=== PATIENT | female | born 1995 | race Caucasian/White ===

== ENCOUNTER 2018-06-26 16:05 | Emergency (ER) | payer MEDICAID ==
[2018-06-26 16:08] VITALS: BMI 23.8
[2018-06-26 16:53] VITALS: TEMP 98.3; O2SAT 100
[2018-06-26 18:10] LABS: BARBITURATES, UR NEGATIVE (NEGATIVE); BENZODIAZEPINES, UR NEGATIVE (NEGATIVE); OPIATES, UR NEGATIVE (NEGATIVE); PHENCYCLIDINE, UR NEGATIVE (NEGATIVE)
[2018-06-26 18:27] LABS: BASO # 0.01 K/mm3 (0.0-2.0); BASO % 0.2 % (0.0-3.0); EOS % 0.2 % (1.5-5.0); HEMOGLOBIN 12.1 g/dL (12.0-16.0); LYMPH # 1.3 (1.2-3.4); LYMPH % 22.5 % (22.0-35.0); MEAN CELL VOLUME 84.7 fl (80.0-105.0); MEAN CORPUSCULAR HGB CONC 33.1 g/dl (31.0-37.0); MEAN PLATELET VOLUME 9.4 fl (7.0-11.0); MONO # 0.4 (0.1-0.6); MONO % 6.9 % (1.0-6.0); RBC 4.32 10^6/uL (3.5-6.1); RED CELL DISTRIBUTION WIDTH 12.6 % (11.5-14.5); WHITE BLOOD COUNT 5.9 10^3/uL (4.5-11.0)
[2018-06-26 18:34] LABS: ALB/GLOB RATIO 1.5 (1.1-1.8); ALBUMIN 4.8 g/dL (3.0-4.8); ALT/SGPT 15 U/L (7-56); AST/SGOT 25 U/L (14-36); BLOOD UREA NITROGEN 11 mg/dL (7-21); CALCIUM 10.1 mg/dL (8.4-10.5); GFR NON-AFRICAN AMERICAN > 60; TROPONIN I < 0.01 ng/mL
[2018-06-26] MEDS ORDERED: Potassium Chloride 40 mEq/30 ml LIQ UD PO STA (18:59)
[2018-06-26] MEDS ORDERED: Potassium Chloride 20 mEq/15 ml LIQ UD PO STA (18:59)
--- NOTE | 2018-06-26 19:06 | ED PDOC ---
Arrival/HPI - General Historian: Patient - Critical Care Critical Care Minutes: 45 minutes - History of Present Illness Narrative History of Present Illness (Text): 06/26/18 19:03 23 year old female with a past medical history of anxiety presents to the hospital reporting an anxiety attack while on the bus today. Patient states she was leaving work from [employer] when she began to feel her heart race and felt like she was going to pass out. Patient denies chest pain, shortness of breath, fevers, chills, nausea, vomiting, headaches, dizziness, or any other complaints. PMD: anxiety Medications: Denies Allergies: Denies Surgical history: Denies Time/Duration: Prior to Arrival Symptom Onset: Sudden Symptom Course: Improving Quality: Other Severity Level: 2 Activities at Onset: Rest Context: Sitting <Kenny Alexandra - Last Filed: 06/26/18 19:24> <Kenny Desai - Last Filed: 06/26/18 19:53> - General Chief Complaint: Dizziness/Lightheaded Past Medical History - Provider Review Nursing Documentation Reviewed: Yes - Infectious Disease Hx of Infectious Diseases: None - Cardiac Hx Cardiac Disorders: No - Pulmonary Hx Respiratory Disorders: No - Neurological Hx Neurological Disorder: No - HEENT Hx HEENT Disorder: No - Renal Hx Renal Disorder: No - Endocrine/Metabolic Hx Endocrine Disorders: No - Hematological/Oncological Hx Blood Disorders: No - Integumentary Hx Dermatological Disorder: No - Musculoskeletal/Rheumatological Hx Musculoskeletal Disorders: Yes (MUSCLE DEFORMITY LEFT CALF) - Gastrointestinal Hx Gastrointestinal Disorders: No - Genitourinary/Gynecological Hx Genitourinary Disorders: No - Psychiatric Hx Psychophysiologic Disorder: No Hx Substance Use: No - Anesthesia Hx Anesthesia: No <Kenny Alexandra - Last Filed: 06/26/18 19:24> Family/Social History - Physician Review Nursing Documentation Reviewed: Yes Family/Social History: No Known Family HX Smoking Status: Never Smoked Hx Alcohol Use: No Hx Substance Use: No <Kenny Alexandra - Last Filed: 06/26/18 19:24> Allergies/Home Meds <Kenny Alexandra - Last Filed: 06/26/18 19:24> <Kenny Desai - Last Filed: 06/26/18 19:53> Allergies/Adverse Reactions: Allergies No Known Allergies Allergy (Verified 01/29/14 13:11) Home Medications: Home Meds Medication Instructions Recorded Confirmed No Known Home Med 01/29/14 01/30/14 Review of Systems - Physician Review All systems were reviewed & negative as marked: Yes - Review of Systems Constitutional: Normal. absent: Fatigue, Weight Change Eyes: Normal. absent: Vision Changes, Photophobia ENT: Normal. absent: Hearing Changes, Tinnitus Respiratory: Normal. absent: SOB, Sputum Cardiovascular: Normal, Other (Lightheaded). absent: Chest Pain Gastrointestinal: Normal. absent: Abdominal Pain, Vomiting, Food Intolerance Musculoskeletal: Normal. absent: Arthralgias Skin: Normal. absent: Rash, Pruritis Neurological: absent: Headache, Dizziness, Focal Weakness, Disequilibrium, Seizure Endocrine: Normal. absent: Diaphoresis, Polyuria, Polydipsia Psychiatric: Anxiety <Kenny Alexandra - Last Filed: 06/26/18 19:24> Physical Exam Vital Signs Reviewed: Yes Vital Signs Temp Pulse BP Pulse Ox 06/26/18 16:46 98.3 F 104 H 116/77 100 Temperature: Afebrile Blood Pressure: Normal Pulse: Tachycardic Respiratory Rate: Normal Appearance: Positive for: Well-Appearing, Non-Toxic, Comfortable Pain Distress: None Mental Status: Positive for: Alert and Oriented X 3. No: Confused, Agitated - Systems Exam Head: Present: Atraumatic, Normocephalic. No: Abrasion Pupils: Present: PERRL. No: Sluggish Extroacular Muscles: Present: EOMI. No: Gaze Palsy Conjunctiva: Present: Normal. No: Injected Mouth: Present: Moist Mucous Membranes. No: Normal Teeth Neck: Present: Normal Range of Motion. No: Meningeal Signs, JVD Respiratory/Chest: Present: Clear to Auscultation, Good Air Exchange. No: Wheezes Cardiovascular: Present: Regular Rate and Rhythm, Normal S1, S2. No: Murmurs, Tachycardic Abdomen: Present: Normal Bowel Sounds. No: Tenderness, Distention Upper Extremity: Present: Normal Inspection. No: Edema, Erythema Lower Extremity: Present: Normal Inspection. No: Edema, Fernie's Sign Neurological: Present: CN II-XII Intact, Speech Normal Skin: Present: Dry, Normal Color Psychiatric: Present: Oriented x 3, Normal Insight <Kenny Alexandra - Last Filed: 06/26/18 19:24> Vital Signs Temp Pulse BP Pulse Ox 06/26/18 16:46 98.3 F 104 H 116/77 100 <Kenny Desai - Last Filed: 06/26/18 19:53> Medical Decision Making ED Course and Treatment: 06/26/18 16:50 23 year old female presents to the hospital for numbness tingling and racing hearbeat. -EKG -CBC/CMP -POC -Troponin -Xanax 06/26/18 16:55 EKG: Sinus tachycardia. No acute ST-T changes appreciated Likely Panic attack. Patient stable for discharge. 06/26/18 17:30 - Lab Interpretations Lab Results: Troponin I < 0.01 ng/mL 06/26/18 17:50 Total Bilirubin 0.8 mg/dL (0.2-1.3) 06/26/18 17:50 AST 25 U/L (14-36) 06/26/18 17:50 ALT 15 U/L (7-56) 06/26/18 17:50 Alkaline Phosphatase 68 U/L (38-126) 06/26/18 17:50 Total Protein 8.1 g/dL (5.8-8.3) 06/26/18 17:50 Albumin 4.8 g/dL (3.0-4.8) 06/26/18 17:50 Globulin 3.2 gm/dL 06/26/18 17:50 Albumin/Globulin Ratio 1.5 (1.1-1.8) 06/26/18 17:50 - Medication Orders Current Medication Orders: Potassium Chloride (Potassium Chloride Oral Soln) 20 meq PO STAT STA Stop: 06/26/18 19:00 Discontinued Medications Alprazolam (Xanax) 0.25 mg PO STAT STA; Protocol Stop: 06/26/18 17:19 Last Admin: 06/26/18 17:43 Dose: 0.25 mg Potassium Chloride (Potassium Chloride Oral Soln) 40 meq PO STAT STA Stop: 06/26/18 19:00 <Kenny Alexandra - Last Filed: 06/26/18 19:24> ED Course and Treatment: 06/26/18 19:17 Patient Seen with Resident: In agreement with resident note which contains more details about the patient. Patient seen and evaluated with resident. Came up with plan and treatment together. Impression: 23 year old female who presents to the emergency department complaining of anxiety. Examination nonfocal. EKG sinus. Hb normal. Blood pressure normal. No dyspnea. No history of CHF. - Lab Interpretations Lab Results: Troponin I < 0.01 ng/mL 06/26/18 17:50 Total Bilirubin 0.8 mg/dL (0.2-1.3) 06/26/18 17:50 AST 25 U/L (14-36) 06/26/18 17:50 ALT 15 U/L (7-56) 06/26/18 17:50 Alkaline Phosphatase 68 U/L (38-126) 06/26/18 17:50 Total Protein 8.1 g/dL (5.8-8.3) 06/26/18 17:50 Albumin 4.8 g/dL (3.0-4.8) 06/26/18 17:50 Globulin 3.2 gm/dL 06/26/18 17:50 Albumin/Globulin Ratio 1.5 (1.1-1.8) 06/26/18 17:50 - Medication Orders Current Medication Orders: Discontinued Medications Alprazolam (Xanax) 0.25 mg PO STAT STA; Protocol Stop: 06/26/18 17:19 Last Admin: 06/26/18 17:43 Dose: 0.25 mg Potassium Chloride (Potassium Chloride Oral Soln) 40 meq PO STAT STA Stop: 06/26/18 19:00 Last Admin: 06/26/18 19:10 Dose: 40 meq Potassium Chloride (Potassium Chloride Oral Soln) 20 meq PO STAT STA Stop: 06/26/18 19:00 Last Admin: 06/26/18 19:10 Dose: 20 meq <Kenny Desai - Last Filed: 06/26/18 19:53> - Scribe Statement The provider has reviewed the documentation as recorded by the Nay Pruitt Provider Scribe Attestation: All medical record entries made by the Scribe were at my direction and personally dictated by me. I have reviewed the chart and agree that the record accurately reflects my personal performance of the history, physical exam, medical decision making, and the department course for this patient. I have also personally directed, reviewed, and agree with the discharge instructions and disposition. <Kenny Desai - Last Filed: 06/26/18 19:53> Disposition/Present on Arrival - Present on Arrival Any Indicators Present on Arrival: No History of DVT/PE: No History of Uncontrolled Diabetes: No Urinary Catheter: No History of Decub. Ulcer: No History Surgical Site Infection Following: None - Disposition Have Diagnosis and Disposition been Completed?: Yes Disposition Time: 17:55 Patient Plan: Discharge <Kenny Alexandra - Last Filed: 06/26/18 19:24> <Kenny Desai - Last Filed: 06/26/18 19:53> - Disposition Diagnosis: Panic attack Disposition: HOME/ ROUTINE Condition: GOOD Additional Instructions: 1.F/u with PMD within 5 days of discharge. 2.F/u with Psychiatry within 5 days of discharge. 3.Return to hospital for any new or worsening symptoms. Referrals: Audra Pérez MD [Staff Provider] - Follow up with primary Forms: [employer] (Belarusian)
[2018-06-26 19:49] VITALS: BP 120/63; PULSE 95; RESP 20
--- NOTE | 2018-06-26 19:55 | CARD ---
APPROVED REPORT Date of service: 06/26/2018 EKG Measurement Heart [id number] <Conclusion> Sinus tachycardia Possible Left atrial enlargement Nonspecific ST and T wave abnormality Abnormal ECG
== END 2018-06-26 19:23 | disposition home or self-care (01) ==
LOC: ED 16:05
DX: F41.0 Panic disorder [episodic paroxysmal anxiety] (principal)
CPT/HCPCS: 80053; 80324; 80345; 80346; 80349; 80353; 80358; 80361; 81025; 82554; 83992; 84484; 85025; 93005; 99284; J3480

== ENCOUNTER 2018-07-10 17:16 | Emergency (ER) | payer MEDICAID ==
[2018-07-10 17:17] VITALS: BMI 23.8
--- NOTE | 2018-07-10 18:00 | ED PDOC ---
Arrival/HPI - General Chief Complaint: Anxiety Time Seen by Provider: 07/10/18 17:19 Historian: Patient, Parent (mother) - History of Present Illness Narrative History of Present Illness (Text): 07/10/18 18:13 23 year old female, whose past medical history includes anxiety, presents to the emergency department complaining of panic attack earlier today. Patient states she was at home, was experiencing palpitations, couldn't breathe and felt like she was "going to :" Mother says these symptoms are consistent with her usual panic attacks. She tried to schedule an appointment with psych to follow up but they couldn't get an appointment for 2 weeks, which prompted her visit to the emergency department. Patient was seen here on 06/26/18 and her CBC, CMP, and drug screen were all normal. Patient denies suicidal ideation, homicidal ideation, or any other somatic complaints. Time/Duration: Prior to Arrival Symptom Onset: Gradual Symptom Course: Unchanged Activities at Onset: Light Context: Home Past Medical History - Provider Review Nursing Documentation Reviewed: Yes - Infectious Disease Hx of Infectious Diseases: None - Cardiac Hx Cardiac Disorders: No - Pulmonary Hx Respiratory Disorders: No - Neurological Hx Neurological Disorder: No - HEENT Hx HEENT Disorder: No - Renal Hx Renal Disorder: No - Endocrine/Metabolic Hx Endocrine Disorders: No - Hematological/Oncological Hx Blood Disorders: No - Integumentary Hx Dermatological Disorder: No - Musculoskeletal/Rheumatological Hx Musculoskeletal Disorders: Yes (MUSCLE DEFORMITY LEFT CALF) - Gastrointestinal Hx Gastrointestinal Disorders: No - Genitourinary/Gynecological Hx Genitourinary Disorders: No - Psychiatric Hx Psychophysiologic Disorder: No Hx Substance Use: No - Anesthesia Hx Anesthesia: No Family/Social History - Physician Review Nursing Documentation Reviewed: Yes Family/Social History: No Known Family HX Smoking Status: Never Smoked Hx Alcohol Use: No Hx Substance Use: No Allergies/Home Meds Allergies/Adverse Reactions: Allergies No Known Allergies Allergy (Verified 07/10/18 17:31) Home Medications: Home Meds Medication Instructions Recorded Confirmed No Known Home Med 01/29/14 07/10/18 Review of Systems - Physician Review All systems were reviewed & negative as marked: Yes - Review of Systems Constitutional: absent: Fevers Respiratory: SOB. absent: Cough Cardiovascular: Palpitations. absent: Chest Pain Gastrointestinal: absent: Abdominal Pain, Diarrhea, Nausea, Vomiting Musculoskeletal: absent: Back Pain, Neck Pain Neurological: absent: Headache, Dizziness Psychiatric: Anxiety. absent: Suicidal Ideation Physical Exam Vital Signs Reviewed: Yes Temperature: Afebrile Blood Pressure: Hypotensive Pulse: Tachycardic Respiratory Rate: Normal Appearance: Positive for: Well-Appearing, Non-Toxic, Comfortable Pain Distress: None Mental Status: Positive for: Alert and Oriented X 3 - Systems Exam Head: Present: Atraumatic, Normocephalic Pupils: Present: PERRL Extroacular Muscles: Present: EOMI Conjunctiva: Present: Normal Mouth: Present: Moist Mucous Membranes Neck: Present: Normal Range of Motion Respiratory/Chest: Present: Clear to Auscultation, Good Air Exchange. No: Respiratory Distress, Accessory Muscle Use Cardiovascular: Present: Normal S1, S2, Tachycardic. No: Regular Rate and Rhythm, Murmurs Abdomen: No: Tenderness, Distention, Peritoneal Signs Back: Present: Normal Inspection Upper Extremity: Present: Normal Inspection. No: Cyanosis, Edema Lower Extremity: Present: Normal Inspection. No: Edema Neurological: Present: GCS=15, CN II-XII Intact, Speech Normal Skin: Present: Warm, Dry, Normal Color. No: Rashes Psychiatric: Present: Alert, Oriented x 3, Normal Insight, Normal Concentration, Anxious Medical Decision Making ED Course and Treatment: 07/10/18 17:59 Impression: 23 year old female, who presents to the emergency department complaining of panic attack. Plan: -- EKG -- Labs -- Chest X-ray -- POC urine test Prior Visits: Notes and results from previous visits were reviewed. Progress Notes: 07/10/18 17:59 EKG shows NSR at 100bpm with normal intervals and no st changes 07/10/18 19:34 Cxray negative as read by me. Labs, including d-dimer, tsh, and trop negative. Presentation consistent with anxiety attack. Now requesting to speak to psych 07/10/18 21:12 Patient was given referrals to [facility]. Cleared for discharge. Giving anxiety coping mechanism - Lab Interpretations I have reviewed the lab results: Yes - RAD Interpretation Radiology Orders: 07/10/18 17:51 CHEST PORTABLE [RAD] Stat Case Management Coordinator: Radiologist - EKG Interpretation Interpreted by ED Physician: Yes Type: 12 lead EKG - Scribe Statement The provider has reviewed the documentation as recorded by the Scribe Emelia Pruitt All medical record entries made by the Scribe were at my direction and personally dictated by me. I have reviewed the chart and agree that the record accurately reflects my personal performance of the history, physical exam, medical decision making, and the department course for this patient. I have also personally directed, reviewed, and agree with the discharge instructions and disposition. Disposition/Present on Arrival - Present on Arrival Any Indicators Present on Arrival: No History of DVT/PE: No History of Uncontrolled Diabetes: No Urinary Catheter: No History of Decub. Ulcer: No History Surgical Site Infection Following: None - Disposition Have Diagnosis and Disposition been Completed?: Yes Diagnosis: Anxiety Disposition: HOME/ ROUTINE Disposition Time: 21:13 Patient Plan: Discharge Condition: GOOD Discharge Instructions (ExitCare): Anxiety, Adult (DC) Additional Instructions: Return to ED if condition worsens. Follow-up with psych outpatient referrals. Referrals: Diane Obregon MD [Primary Care Provider] - Follow up with primary Forms: [employer] (Syrian)
[2018-07-10 18:14] LABS: BASO # 0.01 K/mm3 (0.0-2.0); BASO % 0.2 % (0.0-3.0); HEMOGLOBIN 12.2 g/dL (12.0-16.0); LYMPH # 0.8 (1.2-3.4); LYMPH % 19.6 % (22.0-35.0); MEAN CELL VOLUME 85.9 fl (80.0-105.0); MEAN CORPUSCULAR HEMOGLOBIN 28.1 pg (25.0-35.0); MEAN CORPUSCULAR HGB CONC 32.7 g/dl (31.0-37.0); MEAN PLATELET VOLUME 9.4 fl (7.0-11.0); MONO # 0.1 (0.1-0.6); MONO % 2.9 % (1.0-6.0); RBC 4.34 10^6/uL (3.5-6.1); RED CELL DISTRIBUTION WIDTH 12.4 % (11.5-14.5); WHITE BLOOD COUNT 4.1 10^3/uL (4.5-11.0)
[2018-07-10 18:29] LABS: ALB/GLOB RATIO 1.3 (1.1-1.8); ALBUMIN 4.5 g/dL (3.0-4.8); ALT/SGPT 6 U/L (7-56); AST/SGOT 24 U/L (14-36); BLOOD UREA NITROGEN 13 mg/dL (7-21); CALCIUM 9.8 mg/dL (8.4-10.5); GFR NON-AFRICAN AMERICAN > 60
[2018-07-10 18:39] VITALS: RESP 18; TEMP 98.3; O2SAT 100
[2018-07-10 18:46] LABS: TROPONIN I < 0.01 ng/mL
[2018-07-10 18:57] LABS: FREE T4 0.89 ng/dL (0.78-2.19)
[2018-07-10 20:21] LABS: BARBITURATES, UR NEGATIVE (NEGATIVE); BENZODIAZEPINES, UR NEGATIVE (NEGATIVE); OPIATES, UR NEGATIVE (NEGATIVE); PHENCYCLIDINE, UR NEGATIVE (NEGATIVE)
[2018-07-10 21:22] VITALS: BP 125/85; PULSE 85
--- NOTE | 2018-07-11 07:46 | RAD ---
Date of service: 07/10/2018 HISTORY: palpitations COMPARISON: No prior. TECHNIQUE: 1 view obtained. FINDINGS: LUNGS: No active pulmonary disease. PLEURA: No significant pleural effusion identified, no pneumothorax apparent. CARDIOVASCULAR: No aortic atherosclerotic calcification present. Normal cardiac size. No pulmonary vascular congestion. OSSEOUS STRUCTURES: No significant abnormalities. VISUALIZED UPPER ABDOMEN: Normal. OTHER FINDINGS: None. IMPRESSION: No active disease.
--- NOTE | 2018-07-11 16:32 | CARD ---
APPROVED REPORT Date of service: 07/10/2018 EKG Measurement Heart [id number] <Conclusion> Normal sinus rhythm Normal ECG
== END 2018-07-10 21:15 | disposition home or self-care (01) ==
LOC: ED 17:16
DX: F41.9 Anxiety disorder, unspecified (principal)